=== PATIENT | male | born 1950 | race Caucasian/White ===

== ENCOUNTER 2024-12-23 06:20 | Day surgery (SDC) | payer MEDICARE, SELFPAY | END 2024-12-23 12:41 | disposition home or self-care (01) | LOC: GI 06:20 | PROVIDERS: ATTENDING PHYSICIAN Specialist | DX: Z12.11 Encounter for screening for malignant neoplasm of colon (principal); K57.30 Diverticulosis of large intestine without perforation or abscess without bleeding; D12.5 Benign neoplasm of sigmoid colon; D12.0 Benign neoplasm of cecum; D12.2 Benign neoplasm of ascending colon; Z86.0101 Personal history of adenomatous and serrated colon polyps | CPT/HCPCS: 45385; 45380; 88305 ==